=== PATIENT | female | born 2000 | race Caucasian/White ===

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

== ENCOUNTER → 2020-07-03 | Outpatient (CLI) | payer BC ==
[2020-09-07 11:10] LABS: HEMOGLOBIN A1c 7.4 %
== END ==
LOC: M LAB 12:04
PROVIDERS: ATTEND Student in an Organized Health Care Education/Training Program
DX: E11.65 Type 2 diabetes mellitus with hyperglycemia (principal)